=== PATIENT | female | born 1995 | race African-American/Black ===

== ENCOUNTER 2017-11-18 15:48 | Emergency (ER) | payer OTHER ==
[2017-11-18 15:58] VITALS: BP 97/50; PULSE 80; TEMP 98; BMI 39.4
--- NOTE | 2017-11-18 16:59 | PDOC ---
History of Present Illness - General Chief Complaint: Pain Stated Complaint: ABD PAIN Time Seen by Provider: 11/18/17 16:15 History Source: Patient - History of Present Illness Initial Comments: 22 y/o F w/PMH of tourettes, bipolar d/o, PCOS, IBS presents to the ER for nausea, vomiting, and BRBPR. She has had this nausea and vomiting for 1-2months and was seen at [facility] and here for it. CT was done at [facility] which was negative approximately 1 month ago. She states she is unable to hold down any food and throws up any liquid or solids right after eating. She says that the difficulty in keeping both solids and liquids started at the same time and there was no transition from solids to liquids. THe food she feels gets down to her lower esophagus before coming back up. She also states she has LLQ pain during this time period that is crampy, 7.5/10 in intensity, with no radiation, comes and goes randomly but is worse when she eats. She states she has 2-3 BMs per week during this time period and they have been large, and has had had bright red blood on it with a layer of blood on the toilet water. Last BM was 2 days ago and she has been passing gas since. She currently denies fevers, chills , CP, SOB, LE edema, dysuria. LMP was 5 days ago. Past History - Past Medical History Allergies/Adverse Reactions: Allergies Allergy/AdvReac Type Severity Reaction Status Date / Time acetaminophen [From Tylenol] Allergy Verified 11/18/17 15:58 ibuprofen [From Motrin] Allergy Verified 11/18/17 15:58 Home Medications: Ambulatory Orders Albuterol Sulfate Inhaler - [Ventolin HFA Inhaler -] 1 - 2 inh IH QID #1 inhaler 09/09/11 Benztropine Mesylate [Cogentin] 1 mg PO DAILY 09/09/11 Haloperidol [Haldol] 2 mg PO BID 09/09/11 OXcarbazepine [Trileptal] 600 mg PO HS 09/09/11 Oxcarbazepine [Trileptal] 300 mg PO AM 09/09/11 Ranitidine [Zantac] 150 mg PO BID 09/09/11 Asthma: Yes Cardiac Disorders: No COPD: No Diabetes: No HTN: No Hypercholesterolemia: No Psychiatric Problems: Yes (tourettes and bipolar) Seizures: No - Surgical History Abdominal Surgery: Yes (HERNIA REPAIR) - Immunization History Immunization Up to Date: Yes - Suicide/Smoking/Psychosocial Hx Smoking Status: No Smoking History: Never smoked Have you smoked in the past 12 months: No Number of Cigarettes Smoked Daily: 0 Information on smoking cessation initiated: No Hx Alcohol Use: No Drug/Substance Use Hx: No Substance Use Type: None Review of Systems - Review of Systems Able to Perform ROS?: Yes Constitutional: Yes: Fever (1 fever episode a few days ago), Other (weight gain) . No: Chills Respiratory: No: Cough, Shortness of Breath Cardiac (ROS): Yes: Chest Pain (last night, no longer has chest pain). No: Edema ABD/GI: Yes: Symptoms Reported (abd pain in lower quadrants, changes b/w diarrhea and constipation, BRBPR) : No: Burning, Dysuria Neurological: Yes: Dizziness. No: Headache *Physical Exam - Vital Signs Last Vital Signs Temp Pulse Resp BP Pulse Ox 98.0 F 80 18 97/50 L 100 11/18/17 15:55 11/18/17 15:55 11/18/17 15:55 11/18/17 15:55 11/18/17 15:55 - Physical Exam General Appearance: Yes: Nourished. No: Apparent Distress HEENT: positive: EOMI Neck: positive: Supple Respiratory/Chest: positive: Lungs Clear, Normal Breath Sounds Cardiovascular: positive: Regular Rhythm, Regular Rate, S1, S2 Gastrointestinal/Abdominal: positive: Tender, Soft, Increased Bowel Sounds Rectal Exam: positive: other (deferred) Extremity: negative: Pedal Edema Neurologic: positive: Fully Oriented, Alert, Normal Mood/Affect ED Treatment Course - LABORATORY CBC & Chemistry Diagram: 11/18/17 17:25 11/18/17 17:25 Medical Decision Making - Medical Decision Making Will keep NPO at this time. Check labs (CBCD, CMP, Lipase, TSH, UA). CT w/PO and IV contrast of abdomen pending Cr. NS @100 ml/hr 11/18/17 18:42 Labs wnl. UA negative. FOBT negative. Urine negative. Will order CT w/PO and IV contrast abdomen/pelvis. Case signed out to Dr. Lanza for further management. *DC/Admit/Observation/Transfer Diagnosis at time of Disposition: Abdominal pain - Referrals Referrals: Demetrice Montano MD [Primary Care Provider] - - Patient Instructions - Post Discharge Activity
--- NOTE | 2017-11-18 17:15 | PDOC ---
Attending Attestation - HPI HPI: 11/18/17 17:29 The patient is a 22 year old female, with a significant past medical history of PCOS, IBS, Tourettes, Bipolar, ADHD, Anxiety, and Chronic Lower Back Pain, who presents to the emergency department with a month and half of, nausea, vomiting , abdominal pain (worse LLQ), and bloody stools. She notes inability to keep any PO intake down. The patient has been evaluated at 2 ERs including [facility] with a full workup including a abdominal CT without any pertinent findings. Allergies: Acetaminophen, ibuprofen Past surgical history: Umbilical Hernia Repair. Primary Care Physician: Dr. Montano <Natty Dutton - Last Filed: 11/18/17 17:29> - Resident Resident Name: Sincere Michel - ED Attending Attestation I have performed the following: I have examined & evaluated the patient, The case was reviewed & discussed with the resident, I agree w/resident's findings & plan, Exceptions are as noted - Physicial Exam PE: 11/18/17 19:10 Patient is awake and alert, well-appearing, in no distress Normocephalic and atraumatic PERRLA, EOMI, conjunctiva pink, there is no scleral icterus mmm CTA, Abdomen is soft, nondistended, minimal left lower quadrant tenderness to deep palpation is appreciated, there is no guarding or rebound, no hernias, no CVA tenderness bilaterally RRR - Medical Decision Making 11/18/17 19:11 22-year-old female with history of Tourette syndrome, bipolar disorder presents with recurrent abdominal pain for 1-2 months, with recurrent episodes of nausea , nonbloody, nonbilious vomiting as well as rectal bleeding (last occurring 2 days prior to arrival.). Differential diagnoses includes IBD versus colitis versus diverticulitis versus IBS. We'll obtain CBC/CMP/stool for guaiac and CT of abdomen and pelvis with by mouth and IV contrast. Will reassess. 11/18/17 20:58 Patient reassessed. Patient is resting comfortably and wishes to eat. Abdomen is soft and nontender; CT shows bilateral ovarian cysts, diverticulosis but no evidence of diverticulitis. Collapsed: Without evidence of surrounding inflammation. CBC/CMP within normal limit. Hematocrit is noted to be 40. Stool guaiac is negative. Will discharge with GI follow-up as scheduled. 11/18/17 21:21 Patient vomited shortly prior to discharge. We'll administer IM Reglan and Benadryl. Will reassess. <Tony Zarco - Last Filed: 11/18/17 21:22> Attestations - Attestations 11/18/17 17:30 Documentation prepared by Natty Dutton, acting as chief medical director for Tony Zarco MD. <Natty Dutton - Last Filed: 11/18/17 17:29>
[2017-11-18] MEDS ORDERED: SODIUM CHLORIDE 1,000 ML IV SCH (17:30)
[2017-11-18 18:03] LABS: BASO % 0.3 % (0-2.0); EOS % 2.4 % (0-4.5); HEMATOCRIT 40.7 % (32.4-45.2); HEMOGLOBIN 13.6 GM/dL (10.7-15.3); LYMPH % 33.2 % (8-40); MCH 30.5 pg (25.7-33.7); MCHC 33.3 g/dl (32.0-36.0); MEAN CELL VOLUME 91.4 fl (80-96); MEAN PLT VOLUME 8.6 fl (7.5-11.1); MONO % 7.8 % (3.8-10.2); NEUT % 56.3 % (42.8-82.8); PLATELET COUNT 298 K/MM3 (134-434); RBC 4.45 M/mm3 (3.60-5.2); RDW 13.3 % (11.6-15.6); WHITE BLOOD COUNT 8.6 K/mm3 (4.0-10.0)
[2017-11-18 18:08] LABS: HCG,QUALITATIVE URINE Negative; URINE APPEARANCE CLEAR; URINE BILIRUBIN NEGATIVE (<2.0 mg/dL); URINE COLOR STRAW; URINE GLUCOSE (UA) NEGATIVE (NEGATIVE); URINE KETONE NEGATIVE (NEGATIVE); URINE LEUK ESTERASE NEGATIVE (NEGATIVE); URINE NITRITE NEGATIVE (NEGATIVE); URINE PROTEIN NEGATIVE (NEGATIVE); URINE UROBILINOGEN NEGATIVE mg/dL (0.2-1.0)
[2017-11-18 18:38] LABS: ALBUMIN 3.8 g/dl (3.4-5.0); ALK PHOS 53 U/L (45-117); ANION GAP 6 MMOL/L (8-16); BILIRUBIN,TOTAL 0.6 mg/dL (0.2-1); BLOOD UREA NITROGEN 6 mg/dL (7-18); CALCIUM 9.3 mg/dL (8.5-10.1); CHLORIDE 106 mmol/L (98-107); CO2 27 mmol/L (21-32); CREATININE 0.8 mg/dL (0.55-1.3); GLUCOSE,RANDOM 88 mg/dL (74-106); LIPASE 108 U/L (73-393); SGOT/AST 15 U/L (15-37); SGPT/ALT 16 U/L (13-61); SODIUM 139 mmol/L (136-145); TOT PROT 7.5 g/dl (6.4-8.2)
--- NOTE | 2017-11-18 20:56 | PDOC ---
*Physical Exam - Vital Signs Last Vital Signs Temp Pulse Resp BP Pulse Ox 98.0 F 80 18 97/50 L 100 11/18/17 15:55 11/18/17 15:55 11/18/17 15:55 11/18/17 15:55 11/18/17 15:55 ED Treatment Course - LABORATORY CBC & Chemistry Diagram: 11/18/17 17:25 11/18/17 17:25 - ADDITIONAL ORDERS Additional order review: Laboratory Results 11/18/17 11/18/17 11/18/17 18:09 17:39 17:25 Sodium 139 Potassium 4.0 Chloride 106 Carbon Dioxide 27 Anion Gap 6 L BUN 6 L Creatinine 0.8 Creat Clearance w eGFR > 60 Random Glucose 88 Calcium 9.3 Total Bilirubin 0.6 AST 15 ALT 16 Alkaline Phosphatase 53 Total Protein 7.5 Albumin 3.8 Lipase 108 TSH 1.05 Urine Color Urine Appearance Urine pH Ur Specific [place] Urine Protein Urine Glucose (UA) Urine Ketones Urine Blood Urine Nitrite Urine Bilirubin Urine Urobilinogen Ur Leukocyte Esterase Urine HCG, Qual Stool Occult Blood Negative Blood Type A POSITIVE Antibody Screen Negative 11/18/17 17:25 Sodium Potassium Chloride Carbon Dioxide Anion Gap BUN Creatinine Creat Clearance w eGFR Random Glucose Calcium Total Bilirubin AST ALT Alkaline Phosphatase Total Protein Albumin Lipase TSH Urine Color Straw Urine Appearance Clear Urine pH 8.0 Ur Specific [place] 1.004 Urine Protein Negative Urine Glucose (UA) Negative Urine Ketones Negative Urine Blood Negative Urine Nitrite Negative Urine Bilirubin Negative Urine Urobilinogen Negative Ur Leukocyte Esterase Negative Urine HCG, Qual Negative Stool Occult Blood Blood Type Antibody Screen 11/18/17 17:25 RBC 4.45 MCV 91.4 MCHC 33.3 RDW 13.3 MPV 8.6 Neutrophils % 56.3 Lymphocytes % 33.2 Monocytes % 7.8 Eosinophils % 2.4 Basophils % 0.3 Medical Decision Making - Medical Decision Making Patient signed out with llq pain concerning for follicle vs. other intrabdominal pathology. CT corroborating follicles bilaterally. Patient refused PO contrast so there was inadequate distension of her colon. There was mention of possible colitis due to wall thickening in the non-distended colon, however, this does not correlate clinically as patient is well appearing, lacks diarrhea, negative fobt, and lack of extraordinary wbc. There were also diverticuli on her CT which may explain the intermittent bleeding that she notes at home. Patient tolerating PO. Will DC with GI follow up. 11/18/17 20:51 *DC/Admit/Observation/Transfer Diagnosis at time of Disposition: Abdominal pain Qualifiers: Abdominal location: left lower quadrant Qualified Code(s): R10.32 - Left lower quadrant pain Nausea & vomiting Qualifiers: Vomiting type: bilious vomiting Qualified Code(s): R11.14 - Bilious vomiting - Discharge Dispostion Disposition: HOME Condition at time of disposition: Improved Decision to Admit order: No - Prescriptions Prescriptions: Ondansetron [Zofran *Odt*] 8 mg SL BID PRN #30 od.tablet PRN Reason: Nausea And/Or Vomiting - Referrals Referrals: Demetrice Montano MD [Primary Care Provider] - - Patient Instructions Printed Discharge Instructions: DI for Abdominal Pain-Adult, Nausea and Vomiting-Adult Additional Instructions: Please take it easy with the food. Please stick to fluids and soft foods. Please try to use the Zofran 30 minutes to 1 hour before eating. Please follow up with your GI doctor at your appointment. Please return to the ED if you have worsening abdominal pain, worsening nausea/vomiting, or any other concerning symptoms. - Post Discharge Activity
[2017-11-18] MEDS ORDERED: METOCLOPRAMIDE HCL INJECTION 10 MG/2 ML VIAL IM ONE (21:18)
== END 2017-11-18 22:33 | disposition home or self-care (01) ==
LOC: JER 15:48
PROC: 3E0337Z Introduction of Electrolytic and Water Balance Substance into Peripheral Vein, Percutaneous Approach (ICD-10-PCS; principal; 2017-11-18)
DX: R10.9 Unspecified abdominal pain (principal)
CPT/HCPCS: 36415; 74177-TC; 80053; 81003; 82272; 83690; 84443; 84703; 85025; 86850; 86900; 86901; 87086; 96360; 99283-25; J7030

== ENCOUNTER 2018-01-26 19:28 | Emergency (ER) | payer OTHER ==
[2018-01-26 19:37] VITALS: TEMP 98.6; BMI 36.3
--- NOTE | 2018-01-26 20:18 | PDOC ---
History of Present Illness <Derrick Nunez - Last Filed: 01/27/18 00:18> - History of Present Illness Initial Comments: 01/26/18 20:17 22 yo F with h/o asthma, bipolar disorder, Tourettes, who p/w diffuse abdominal pain, vomiting, lightheadedness. Endorses 3 episodes of non bilious, non bloody emesis this evening, with subsequent lightheadedness. + 3 months of diffuse, sharp, spasmodic abdominal pain, with no identifiable triggers or alleviators. Reports weight loss 87 Ibs in 3 months. Also endorses 1 week of loose stools, with absent BPR. Patient does not fully recall events from this evening. Endorses episode of transient, sharp, retrosternal chest pain, olfactory sensation of "burnt feathers,"and then lightheadedness this evening. Pt. mother at bedside to assist in report. States that patient was vomiting, and walked into room where patient was layign up against the wall and tired appearing, tremulous. Patient denies LOC, head trauma. Patient reports 3 months of intermittent vomiting, worse with PO intake. H/o IBS. Seen by Dr. Tc Pratt today and scheduled for outpt. EGD. Prior CT AP 11/08 with thickening of ascending, mid, and transverse colon. Patient denies N/V, F/C, cough, wheezing, leg pain/swelling, SOB, urinary complaints, abdominal pain, diarrhea, constipation, lightheadedness, weakness, sensory changes. PMHx: as noted above. Denies h/o abdominal surgery. ROS: as noted SHx: recreational tobacco 1-2 cigarretes/weekly. Denies Etoh, IVDA Allergies: Ibuprofen,Tylenol <Panchito Flor - Last Filed: 01/27/18 00:32> - General Chief Complaint: Seizure Stated Complaint: SEIZURE Time Seen by Provider: 01/26/18 20:10 Past History <Derrick Nunez - Last Filed: 01/27/18 00:18> - Past Medical History Asthma: Yes Cardiac Disorders: No COPD: No Diabetes: No HTN: No Hypercholesterolemia: No Psychiatric Problems: Yes (tourettes and bipolar,ADHD) Seizures: No - Surgical History Abdominal Surgery: Yes (HERNIA REPAIR) - Immunization History Immunization Up to Date: Yes - Suicide/Smoking/Psychosocial Hx Smoking Status: No Smoking History: Never smoked Have you smoked in the past 12 months: No Number of Cigarettes Smoked Daily: 0 Hx Alcohol Use: No Drug/Substance Use Hx: No Substance Use Type: None <Shoaib Florson - Last Filed: 01/27/18 00:32> - Past Medical History Allergies/Adverse Reactions: Allergies Allergy/AdvReac Type Severity Reaction Status Date / Time acetaminophen [From Tylenol] Allergy Verified 11/18/17 15:58 ibuprofen [From Motrin] Allergy Verified 11/18/17 15:58 Home Medications: Ambulatory Orders Ranitidine [Zantac -] 150 mg PO DAILY PRN #14 tablet 01/26/18 Review of Systems - Review of Systems Comments:: 01/26/18 20:17 GENERAL/CONSTITUTIONAL: No fever or chills. No weakness. HEAD, EYES, EARS, NOSE AND THROAT: No change in vision. No ear pain or discharge. No sore throat. CARDIOVASCULAR:+chest pain. no shortness of breath RESPIRATORY: No cough, wheezing, or hemoptysis. GASTROINTESTINAL: + nausea, vomiting, diarrhea, abdominal pain. No constipation. GENITOURINARY: No dysuria, frequency, or change in urination. MUSCULOSKELETAL: No joint or muscle swelling or pain. No neck or back pain. SKIN: No rash NEUROLOGIC: + lightheadedness. No headache, vertigo, loss of consciousness, or change in strength/sensation. ENDOCRINE: No increased thirst. No abnormal weight change HEMATOLOGIC/LYMPHATIC: No anemia, easy bleeding, or history of blood clots. ALLERGIC/IMMUNOLOGIC: No hives or skin allergy. <Panchito Flor - Last Filed: 01/27/18 00:32> *Physical Exam - Vital Signs Last Vital Signs Temp Pulse Resp BP Pulse Ox 98.6 F 77 16 108/76 99 01/26/18 19:31 01/26/18 21:53 01/26/18 21:53 01/26/18 21:53 01/26/18 21:53 <Derrick Nunez - Last Filed: 01/27/18 00:18> - Vital Signs Last Vital Signs Temp Pulse Resp BP Pulse Ox 98.6 F 77 20 134/96 99 01/26/18 19:31 01/26/18 19:31 01/26/18 19:31 01/26/18 19:31 01/26/18 19:31 - Physical Exam Comments: 01/26/18 20:18 GENERAL: Awake, alert, and fully oriented, in no acute distress HEAD: No signs of trauma, normocephalic, atraumatic EYES: PERRLA, EOMI, sclera anicteric, conjunctiva clear ENT:Hearing grossly normal, nares patent, oropharynx clear without exudates. Moist mucosa NECK: Normal ROM, supple, no lymphadenopathy, JVD, or masses LUNGS: No distress, speaks full sentences, clear to auscultation bilaterally HEART: Regular rate and rhythm, normal S1 and S2, no murmurs, rubs or gallops, peripheral pulses normal and equal bilaterally. ABDOMEN: Diffuse abdominal ttp midabdominal > epigastria > RLQ. Soft, NDS, normoactive bowel sounds. No guarding, no rebound. No masses EXTREMITIES : Normal inspection, Normal range of motion, no edema. No clubbing or cyanosis. NEUROLOGICAL: Cranial nerves II through XII grossly intact. Normal speech, normal gait, no focal sensorimotor deficits. Normal KERWIN. Absent dysmetria on FTN , HTS. SKIN: Warm, Dry, normal turgor, no rashes or lesions noted <Panchito Flor - Last Filed: 01/27/18 00:32> Moderate Sedation - Procedure Monitoring Vital Signs: Procedure Monitoring Vital Signs Temperature 98.6 F 01/26/18 19:31 Pulse Rate 77 01/26/18 21:53 Respiratory Rate 16 01/26/18 21:53 Blood Pressure 108/76 01/26/18 21:53 O2 Sat by Pulse Oximetry (%) 99 01/26/18 21:53 <Derrick Nunez - Last Filed: 01/27/18 00:18> - Procedure Monitoring Vital Signs: Procedure Monitoring Vital Signs Temperature 98.6 F 01/26/18 19:31 Pulse Rate 77 01/26/18 19:31 Respiratory Rate 20 01/26/18 19:31 Blood Pressure 134/96 01/26/18 19:31 O2 Sat by Pulse Oximetry (%) 99 01/26/18 19:31 <Panchito Flor - Last Filed: 01/27/18 00:32> ED Treatment Course - LABORATORY CBC & Chemistry Diagram: 01/26/18 21:46 01/26/18 20:48 - ADDITIONAL ORDERS Additional order review: Laboratory Results 01/26/18 01/26/18 01/26/18 22:55 22:55 21:46 Sodium Potassium Chloride Carbon Dioxide Anion Gap BUN Creatinine Creat Clearance w eGFR Random Glucose Calcium Total Bilirubin AST ALT Alkaline Phosphatase Creatine Kinase 149 Troponin I < 0.02 Total Protein Albumin Lipase Urine Color Ltyellow Urine Appearance Clear Urine pH 7.0 Ur Specific [place] 1.016 Urine Protein Negative Urine Glucose (UA) Negative Urine Ketones Negative Urine Blood 1+ H Urine Nitrite Negative Urine Bilirubin Negative Urine Urobilinogen Negative Ur Leukocyte Esterase Negative Urine WBC (Auto) <1 Urine RBC (Auto) 1 Ur Epithelial Cells Rare Urine Mucus Few Urine HCG, Qual Negative 01/26/18 01/26/18 21:46 20:48 Sodium 142 Potassium 4.1 Chloride 108 H Carbon Dioxide 25 Anion Gap 9 BUN 9 Creatinine 0.7 Creat Clearance w eGFR > 60 Random Glucose 81 Calcium 8.6 Total Bilirubin 0.2 AST 12 L ALT 16 Alkaline Phosphatase 53 Creatine Kinase Troponin I Total Protein 6.7 Albumin 3.5 Lipase Cancelled 150 Urine Color Urine Appearance Urine pH Ur Specific [place] Urine Protein Urine Glucose (UA) Urine Ketones Urine Blood Urine Nitrite Urine Bilirubin Urine Urobilinogen Ur Leukocyte Esterase Urine WBC (Auto) Urine RBC (Auto) Ur Epithelial Cells Urine Mucus Urine HCG, Qual 01/26/18 21:46 RBC 4.12 MCV 90.2 MCHC 34.6 RDW 13.4 MPV 8.7 Neutrophils % 55.0 Lymphocytes % 34.2 Monocytes % 8.1 Eosinophils % 2.5 Basophils % 0.2 - Medications Given in the ED: ED Medications Discontinued Medications Generic Name Dose Route Start Last Admin Trade Name Arnaudq PRN Reason Stop Dose Admin Al Hydroxide/Mg Hydroxide 30 ml 01/26/18 20:48 01/26/18 21:13 Mylanta Oral Suspension - PO 01/26/18 20:49 30 ml ONCE ONE Administration Famotidine/Sodium Chloride 20 mg in 50 mls @ 100 mls/hr 01/26/18 20:48 21:13 Pepcid 20 Mg Premixed Ivpb - IVPB 01/26/18 21:17 100 mls/hr ONCE ONE Administration Sodium Chloride 1,000 mls @ 1,000 mls/hr 01/26/18 20:48 01/26/18 21:13 Normal Saline - IV 01/26/18 21:47 1,000 mls/hr ASDIR STA Administration Ondansetron HCl 4 mg 01/26/18 20:48 01/26/18 21:14 Zofran Injection IVPB 01/26/18 20:49 4 mg ONCE ONE Administration Sucralfate 1 gm 01/26/18 20:48 01/26/18 21:12 Carafate - PO 01/26/18 20:49 1 gm ONCE ONE Administration <Derrick Nunez - Last Filed: 01/27/18 00:18> - LABORATORY CBC & Chemistry Diagram: 01/26/18 21:46 01/26/18 20:48 <Panchito Flor - Last Filed: 01/27/18 00:32> Medical Decision Making - Medical Decision Making 01/26/18 21:02 22 yo F with h/o asthma, bipolar disorder, Tourettes, who p/w diffuse abdominal pain, vomiting, lightheadedness. VSS, AF, A&Ox3.Diffuse abdominal ttp midabdominal > epigastria > RLQ ttp. Will consider esophagitis, gastritis, gastroenteritis, pancreatitis, biliary dz. colitis, nephrolithiasis, cystitis. Low suspicion AAA, Ao dissection, pyelonephritis. Possible siezure. Will evaluate for electrolyte abnml, metabolic and toxic derangements, acid base disturbances. Ed Course: CBC,CMP, LIPASE, UA, HCG, CARDIAC [place]. EKG FAMOTIDINE, ZOFRAN, NS, CARAFATE, MALOOX 01/26/18 21:18 EKG: NSR with absent SAURABH, STD. Nml axis and intervals. 01/26/18 22:39 CBC,CMP: Unremarkable Trop: Neg UA: Neg 01/27/18 00:14 Patient with absent convulsions in ED. Stable for d/c with return precautions. Advised to f/u with neurology. <Panchito Flor - Last Filed: 01/27/18 00:32> *DC/Admit/Observation/Transfer <Derrick Nunez - Last Filed: 01/27/18 00:18> - Discharge Dispostion Decision to Admit order: No - Attestations Physician Attestion: 01/26/18 20:18 I attest to the information provided in this note. <Panchito Flor - Last Filed: 01/27/18 00:32> Diagnosis at time of Disposition: Abdominal pain Qualifiers: Abdominal location: generalized Qualified Code(s): R10.84 - Generalized abdominal pain - Discharge Dispostion Condition at time of disposition: Stable - Prescriptions Prescriptions: Ranitidine [Zantac -] 150 mg PO DAILY PRN #14 tablet PRN Reason: Pain - Referrals Referrals: [facility] [place] [facility] [place] [Provider Group] - Patient Instructions Printed Discharge Instructions: DI for Abdominal Pain-Adult Additional Instructions: Please return to the emergency department with any new or worsening symptoms or concerns. Please follow up with your primary care physician within 72 hours. Please follow up with Gastroenterology within one week. Take Ranitidine as needed for pain.
[2018-01-26] MEDS ORDERED: SODIUM CHLORIDE 1,000 ML IV STA (20:48)
[2018-01-26] MEDS ORDERED: FAMOTIDINE 20 MG/50 ML IVPB 20 MG/50 ML MG IVPB ONE ×2 (20:48→20:55)
[2018-01-26] MEDS ORDERED: MAG HYDROX/AL HYDROX/SIMETH 30 ML UNIT-DOSE CUP PO ONE (20:48)
[2018-01-26] MEDS ORDERED: SUCRALFATE 1 GM TABLET (FP) PO ONE (20:48)
[2018-01-26] MEDS ORDERED: ONDANSETRON 4 MG/2 ML VIAL IVPB ONE (20:48)
[2018-01-26] MEDS ORDERED: SUCRALFATE 1 GM TABLET (FP) ONE (20:54)
[2018-01-26] MEDS ORDERED: ONDANSETRON 4 MG/2 ML VIAL ONE (20:55)
[2018-01-26] MEDS ORDERED: MAG HYDROX/AL HYDROX/SIMETH 30 ML UNIT-DOSE CUP ONE (20:56)
[2018-01-26 21:55] LABS: BASO % 0.2 % (0-2.0); EOS % 2.5 % (0-4.5); HEMATOCRIT 37.2 % (32.4-45.2); HEMOGLOBIN 12.8 GM/dL (10.7-15.3); LYMPH % 34.2 % (8-40); MCH 31.2 pg (25.7-33.7); MCHC 34.6 g/dl (32.0-36.0); MEAN CELL VOLUME 90.2 fl (80-96); MEAN PLT VOLUME 8.7 fl (7.5-11.1); MONO % 8.1 % (3.8-10.2); PLATELET COUNT 281 K/MM3 (134-434); RBC 4.12 M/mm3 (3.60-5.2); RDW 13.4 % (11.6-15.6)
[2018-01-26 22:22] LABS: ALBUMIN 3.5 g/dl (3.4-5.0); ALK PHOS 53 U/L (45-117); ANION GAP 9 MMOL/L (8-16); BILIRUBIN,TOTAL 0.2 mg/dL (0.2-1); BLOOD UREA NITROGEN 9 mg/dL (7-18); CALCIUM 8.6 mg/dL (8.5-10.1); CHLORIDE 108 mmol/L (98-107); CO2 25 mmol/L (21-32); CREATININE 0.7 mg/dL (0.55-1.3); GLUCOSE,RANDOM 81 mg/dL (74-106); POTASSIUM 4.1 mmol/L (3.5-5.1); SGOT/AST 12 U/L (15-37); SGPT/ALT 16 U/L (13-61); SODIUM 142 mmol/L (136-145); TOT PROT 6.7 g/dl (6.4-8.2)
--- NOTE | 2018-01-26 22:35 | PDOC ---
Attending Attestation - Resident Resident Name: Panchito Flor - ED Attending Attestation I have performed the following: I have examined & evaluated the patient, The case was reviewed & discussed with the resident, I agree w/resident's findings & plan - HPI HPI: 01/26/18 22:29 22-year-old female with history of bipolar disorder, Tourette's syndrome, seizure disorder, chronic GI issues with possible IBS, off all medications since July after moving out of her retirement presents now with vomiting and possible seizure this evening. Patient appears to have had seizure with aura while standing in the kitchen, describes her typical olfactory aura and then was found by her family member on the floor, minimally responsive for about 3-4 minutes and then slowly began to return to baseline. No head injury, positive vomiting, no other complaints. No preceding infectious complaints, patient's GI complaints have been slightly improving over the last few days and she was seen by Dr. Pratt yesterday with plans to perform endoscopy/colonoscopy as outpatient. No fevers or chills, no cardiopulmonary complaints, has no neurological complaints at this time. Patient's last seizure was about 10 years ago, reports she was evaluated by neurology back then and decision was made to not start antiepileptics. - Physicial Exam PE: 01/26/18 22:32 Vital signs are normal Patient is well-appearing, conversant, in no acute distress, smiling and cooperative, intermittent verbal tic. head atraumatioc Heart is regular without ectopy or murmur, lungs are clear Abdomen benign Neurologically nonfocal and intact No SI/HI/AH/VH - Medical Decision Making 01/26/18 22:36 22-year-old female with history of bipolar, Tourette's, and seizures off medications for 6 months with presentation now this seems most consistent with seizure episode with aura, rule out infectious versus metabolic etiology. Neurologically intact without evidence of SIRS or sepsis, well-appearing now. Check labs, urinalysis, EKG No indication for emergent imaging given history of seizures and no evidence of head injury IV fluids, GI cocktail Reassess, above is within normal limits we'll give medicine clinic referral and neurology referral Heart Score/ECG Review #1 ECG reviewed & interpreted by me at: 20:21 General ECG Interpretation: Sinus Rhythm, Normal Rate (66), Normal Intervals ( qtc 417), No acute ischemic changes
[2018-01-26 23:16] LABS: URINE APPEARANCE CLEAR; URINE BILIRUBIN NEGATIVE (<2.0 mg/dL); URINE COLOR LTYELLOW; URINE GLUCOSE (UA) NEGATIVE (NEGATIVE); URINE KETONE NEGATIVE (NEGATIVE); URINE LEUK ESTERASE NEGATIVE (NEGATIVE); URINE NITRITE NEGATIVE (NEGATIVE); URINE PROTEIN NEGATIVE (NEGATIVE); URINE UROBILINOGEN NEGATIVE mg/dL (0.2-1.0)
[2018-01-26 23:17] LABS: EPI CELLS RARE /HPF (FEW); URINE MUCUS FEW
[2018-01-26 23:22] LABS: LIPASE 150 U/L (73-393)
[2018-01-27 00:45] VITALS: BP 112/67; PULSE 80
--- NOTE | 2018-01-27 11:44 | EKG ---
Test Reason : Blood Pressure : / mmHG Vent. Rate : 066 BPM Atrial Rate : 066 BPM P-R Int : 158 ms QRS Dur : 086 ms QT Int : 398 ms P-R-T Axes : 037 021 009 degrees QTc Int : 417 ms NORMAL SINUS RHYTHM NONSPECIFIC T WAVE ABNORMALITY ABNORMAL ECG WHEN COMPARED WITH ECG OF 29-OCT-2017 09:35, NO SIGNIFICANT CHANGE WAS FOUND Confirmed by KINGS LOWE MD ([id number]) on 01/27/2018 11:43:41 AM Referred By: Confirmed By:KINGS LOWE MD
== END 2018-01-27 03:12 | disposition home or self-care (01) ==
LOC: JER 19:28
PROC: 3E033GC Introduction of Other Therapeutic Substance into Peripheral Vein, Percutaneous Approach (ICD-10-PCS; principal; 2018-01-26)
PROC: 3E033GC Introduction of Other Therapeutic Substance into Peripheral Vein, Percutaneous Approach (ICD-10-PCS; 2018-01-26)
DX: R10.84 Generalized abdominal pain (principal); F31.9 Bipolar disorder, unspecified; F90.9 Attention-deficit hyperactivity disorder, unspecified type; J45.909 Unspecified asthma, uncomplicated; F95.2 Tourette's disorder
CPT/HCPCS: 36415; 80053; 81003; 81015; 82550; 83690; 84484; 84703; 85025; 93005; 93010; 99282-25; J7030

== ENCOUNTER 2018-04-05 20:47 | Emergency (ER) | payer OTHER ==
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
[2018-04-05 21:05] VITALS: BP 112/65; PULSE 83; TEMP 98.5; BMI 28.3
--- NOTE | 2018-04-05 21:41 | PDOC ---
History of Present Illness - General Chief Complaint: Pain Stated Complaint: CHEST PAIN Time Seen by Provider: 04/05/18 20:55 History Source: Patient - History of Present Illness Initial Comments: 04/05/18 21:42 23 year old female with history of bipolar disorder, tourettes, bipolar, anxiety c/o chest discomfort after several arguments with girl friend, patient reports unprotected sex with a friend unsure if she is . LMP: 02/21/18. denies urinary symptoms, dizziness, vaginal discharge., Past History - Past Medical History Allergies/Adverse Reactions: Allergies Allergy/AdvReac Type Severity Reaction Status Date / Time acetaminophen [From Tylenol] Allergy Verified 04/05/18 20:59 ibuprofen [From Motrin] Allergy Verified 04/05/18 20:59 Home Medications: Ambulatory Orders Ranitidine [Zantac -] 150 mg PO DAILY PRN #14 tablet 01/26/18 Asthma: Yes Cardiac Disorders: No COPD: No Diabetes: No HTN: No Hypercholesterolemia: No Psychiatric Problems: Yes (tourettes and bipolar,ADHD) Seizures: No - Surgical History Abdominal Surgery: Yes (Umbilical hernia repair) - Immunization History Immunization Up to Date: Yes - Suicide/Smoking/Psychosocial Hx Smoking Status: No Smoking History: Never smoked Have you smoked in the past 12 months: No Number of Cigarettes Smoked Daily: 0 Information on smoking cessation initiated: No Hx Alcohol Use: No Drug/Substance Use Hx: No Substance Use Type: None Review of Systems - Review of Systems Able to Perform ROS?: Yes Is the patient limited Bermudian proficient: No Constitutional: No: Symptoms Reported, See HPI, Chills, Diaphoresis, Fever, Loss of Appetite, Malaise, Night Sweats, Weakness, Weight Stable, Unintentional Wgt. Loss, Unexplained wgt Loss, Other HEENTM: No: Symptoms Reported, See HPI, Eye Pain, Blurred Vision, Tearing, Recent change in vision, Double Vision, Cataracts, Ear Pain, Ocular Prothesis, Ear Discharge, Nose Pain, Nose Congestion, Tinnitus, Nose Bleeding, Hearing Loss , Throat Pain, Throat Swelling, Mouth Pain, Dental Problems, Difficulty Swallowing, Mouth Swelling, Other Respiratory: No: Symptoms reported, See HPI, Cough, Orthopnea, Shortness of Breath, SOB with Exertion, SOB at Rest, Stridor, Wheezing, Productive cough, Hemoptysis, Other Cardiac (ROS): Yes: Chest Pain. No: Symptoms Reported, See HPI, Edema, Irregular Heart Rate, Lightheadedness, Palpitations, Syncope, Chest Tightness, Other : No: Symptoms Reported, See HPI, Burning, Dysuria, Discharge, Frequency, Flank Pain, Hematuria, Incontinence, Pain, Urgency, Testicular Mass, Testicular Swelling, Lesions, Testicular Pain, Other *Physical Exam - Vital Signs Last Vital Signs Temp Pulse Resp BP Pulse Ox 98.5 F 83 18 112/65 99 04/05/18 21:00 04/05/18 21:00 04/05/18 21:00 04/05/18 21:00 04/05/18 21:00 - Physical Exam General Appearance: Yes: Appropriately Dressed Respiratory/Chest: positive: Lungs Clear Cardiovascular: positive: Regular Rhythm, Regular Rate Gastrointestinal/Abdominal: positive: Normal Bowel Sounds, Soft. negative: Tender Musculoskeletal: positive: Normal Inspection Extremity: positive: Normal Capillary Refill, Normal Inspection, Normal Range of Motion Integumentary: positive: Normal Color, Dry, Warm Neurologic: positive: microsoft windows engineer II-XII NML intact, Fully Oriented, Alert, Normal Mood/ Affect Moderate Sedation - Procedure Monitoring Vital Signs: Procedure Monitoring Vital Signs Temperature 98.5 F 04/05/18 21:00 Pulse Rate 83 04/05/18 21:00 Respiratory Rate 18 04/05/18 21:00 Blood Pressure 112/65 04/05/18 21:00 O2 Sat by Pulse Oximetry (%) 99 04/05/18 21:00 Heart Score/ECG Review - ECG Intrepretation Rhythm: Regular Rhythm Comment:: 04/05/18 23:03 NSR: 73 bpm *DC/Admit/Observation/Transfer Diagnosis at time of Disposition: Anxiety attack, Concern about unplanned without diagnosis - Discharge Dispostion Disposition: HOME - Referrals Referrals: Zak Montalvo MD [Primary Care Provider] - Marybeth Grossman MD [Staff Physician] - - Patient Instructions Printed Discharge Instructions: DI for Anxiety -- Adult Additional Instructions: please follow up with your doctor Additional Instructions: * Please call your personal physician to report your Emergency Department visit and to report your progress, if any. * If there is no improvement in symptoms in 2 days call your physician. * Return to the Emergency Department for any worsening symptoms. - Post Discharge Activity
[2018-04-05 22:17] LABS: URINE APPEARANCE CLEAR; URINE BILIRUBIN NEGATIVE (<2.0 mg/dL); URINE COLOR STRAW; URINE GLUCOSE (UA) NEGATIVE (NEGATIVE); URINE KETONE NEGATIVE (NEGATIVE); URINE LEUK ESTERASE NEGATIVE (NEGATIVE); URINE NITRITE NEGATIVE (NEGATIVE); URINE PROTEIN NEGATIVE (NEGATIVE); URINE UROBILINOGEN NEGATIVE mg/dL (0.2-1.0)
--- NOTE | 2018-04-06 15:40 | EKG ---
Test Reason : Blood Pressure : / mmHG Vent. Rate : 073 BPM Atrial Rate : 073 BPM P-R Int : 154 ms QRS Dur : 086 ms QT Int : 374 ms P-R-T Axes : 047 039 023 degrees QTc Int : 412 ms NORMAL SINUS RHYTHM NORMAL ECG WHEN COMPARED WITH ECG OF 26-JAN-2018 20:21, NO SIGNIFICANT CHANGE WAS FOUND Confirmed by LEONID HASSAN MD ([id number]) on 04/06/2018 3:40:40 PM Referred By: Confirmed By:LEONID HASSAN MD
== END 2018-04-05 23:15 | disposition home or self-care (01) ==
LOC: JER 20:47
DX: F41.0 Panic disorder [episodic paroxysmal anxiety] (principal); Z32.02 Encounter for pregnancy test, result negative; Z86.59 Personal history of other mental and behavioral disorders; F95.2 Tourette's disorder
CPT/HCPCS: 81003; 84703; 93005; 93010; 99281-25

== ENCOUNTER 2018-07-29 12:04 | Emergency (ER) | payer OTHER | END 2018-07-29 12:49 | disposition home or self-care (01) | LOC: JERFT 12:04 ==

== ENCOUNTER 2019-02-18 01:15 | Emergency (ER) | payer OTHER ==
--- NOTE | 2019-02-18 01:37 | PDOC ---
History of Present Illness - General Stated Complaint: POSSIBLE SEIZURE Time Seen by Provider: 02/18/19 01:37 - History of Present Illness Initial Comments: 02/18/19 01:37 24-year-old female with history of bipolar disorder, Tourette's syndrome, seizure disorder, chronic GI issues with possible IBS who presents with a headache that has been ongoing for 1.5 months and with feelign as if she might have a seizure. on depakote, occipital headache for 1.5months previously managed with tylenol and execedrin but ran out of home meds had worsening headache today at 12am with dizziness, thought she might be having a seizure compliant with all meds Past History - Past Medical History Allergies/Adverse Reactions: Allergies Allergy/AdvReac Type Severity Reaction Status Date / Time acetaminophen [From Tylenol] Allergy Verified 07/29/18 12:21 ibuprofen [From Motrin] Allergy Verified 07/29/18 12:21 Home Medications: Ambulatory Orders Divalproex *ER* [Depakote *ER* -] 500 mg PO DAILY 07/29/18 Haloperidol [Haldol -] 5 mg PO BID 07/29/18 Acetaminophen [Tylenol] 325 mg PO DAILY #10 capsule 02/18/19 Diphenhydramine HCl [Benadryl -] 25 mg PO ONCE 3 Days #1 capsule 02/18/19 Asthma: Yes Cardiac Disorders: No COPD: No Diabetes: No HTN: No Hypercholesterolemia: No Psychiatric Problems: Yes (tourettes and bipolar,ADHD) Seizures: No - Surgical History Abdominal Surgery: Yes (HERNIA REPAIR) - Immunization History Immunization Up to Date: Yes - Psycho Social/Smoking Cessation Hx Smoking Status: No Smoking History: Unknown if ever smoked Have you smoked in the past 12 months: Yes Number of Cigarettes Smoked Daily: 0 Hx Alcohol Use: Yes Drug/Substance Use Hx: Yes Substance Use Type: None ED Treatment Course - LABORATORY CBC & Chemistry Diagram: 02/18/19 03:16 02/18/19 03:16 Discharge - Discharge Information Problems reviewed: Yes Clinical Impression/Diagnosis: Headache Condition: Stable Disposition: HOME - Admission No - Additional Discharge Information Prescriptions: Acetaminophen [Tylenol] 325 mg PO DAILY #10 capsule Diphenhydramine HCl [Benadryl -] 25 mg PO ONCE 3 Days #1 capsule - Follow up/Referral Referrals: Shraddha Real MD [Primary Care Provider] - - Patient Discharge Instructions Patient Printed Discharge Instructions: DI for Seizure Disorder -- Adult, DI for Headache Additional Instructions: You were seen in the ED for complaints of headache In the ED you were evaluated with labwork Your results showed a low depakote level and you were given an additional dose here. Otherwise your labs were unremarkable and you showed symptom improvement There does not appear to be an acute need for immediate hospitalization. You are advised to follow up with your Primary Care Physician and your Psychiatrist within 1 week. Return to the ED immediately if you experience worsening headache, dizziness, fever, shortness of breath or any other concerning symptoms. - Post Discharge Activity
--- NOTE | 2019-02-18 01:43 | PDOC ---
Attending Attestation - Resident Resident Name: Monica Heart - ED Attending Attestation I have performed the following: I have examined & evaluated the patient, The case was reviewed & discussed with the resident, I agree w/resident's findings & plan - HPI HPI: 02/18/19 04:30 Pt thinks that she felt like she may have a seizure because she experienced dizziness with her usual BHAT. Pt has no other complaints She is A+Ox3 and she is rating and drinking and refusing IV Pt just wants to check her depakote level. - Physicial Exam PE: 02/18/19 04:32 Normal exam. A+Ox3 and no distress CN 2-12 intact Neuro no gross focal deficits. She has no fever No rahses Abd soft NT ND HEENT normal No pitting edema - Medical Decision Making 02/18/19 04:34 Pt has normal labs; depakote is low at 39; therapeutic range is 50-100; pt will be given an extrea dose of depakote ER 500mg and she will be discharged home. She is feeling better and she will go home with medicaid cab.
[2019-02-18 01:51] VITALS: BP 101/55; PULSE 80; TEMP 98.4; BMI 43.2
[2019-02-18] MEDS ORDERED: METOCLOPRAMIDE HCL INJECTION 10 MG/2 ML VIAL IVPUSH ONE (02:30)
[2019-02-18] MEDS ORDERED: ACETAMINOPHEN 1000 MG/100 ML VIAL (NON FORMULARY) IVPB ONE (02:30)
[2019-02-18] MEDS ORDERED: SODIUM CHLORIDE 1,000 ML IV SCH (02:45)
[2019-02-18] MEDS ORDERED: diphenhydrAMINE HCL 25 MG CAPSULE (FP) PO ONE ×2 (03:19→04:44)
[2019-02-18] MEDS ORDERED: METOCLOPRAMIDE HCL 10 MG TABLET (FP) PO ONE (03:19)
[2019-02-18] MEDS ORDERED: ACETAMINOPHEN 325 MG TABLET (FP) PO ONE (03:19)
[2019-02-18 03:42] LABS: BASO % 0.3 % (0-2.0); EOS % 2.1 % (0-4.5); HEMATOCRIT 41.2 % (32.4-45.2); HEMOGLOBIN 13.8 GM/dL (10.7-15.3); LYMPH % 21.7 % (8-40); MCH 30.8 pg (25.7-33.7); MCHC 33.6 g/dl (32.0-36.0); MEAN CELL VOLUME 91.9 fl (80-96); MEAN PLT VOLUME 8.3 fl (7.5-11.1); MONO % 7.8 % (3.8-10.2); NEUT % 68.1 % (42.8-82.8); PLATELET COUNT 301 K/MM3 (134-434); RBC 4.49 M/mm3 (3.60-5.2); RDW 13.1 % (11.6-15.6); WHITE BLOOD COUNT 10.9 K/mm3 (4.0-10.0)
[2019-02-18 04:09] LABS: ALBUMIN 3.6 g/dl (3.4-5.0); ALK PHOS 54 U/L (45-117); ANION GAP 6 MMOL/L (8-16); BILIRUBIN,TOTAL 0.2 mg/dL (0.2-1); BLOOD UREA NITROGEN 11.9 mg/dL (7-18); CALCIUM 9.2 mg/dL (8.5-10.1); CHLORIDE 106 mmol/L (98-107); CO2 28 mmol/L (21-32); CREATININE 0.8 mg/dL (0.55-1.3); GLUCOSE,RANDOM 94 mg/dL (74-106); POTASSIUM 4.1 mmol/L (3.5-5.1); SGOT/AST 12 U/L (15-37); SGPT/ALT 21 U/L (13-61); SODIUM 139 mmol/L (136-145); TOT PROT 7.2 g/dl (6.4-8.2)
[2019-02-18 04:26] LABS: EPI CELLS 2.4 /HPF (0-5/HPF); HYALINE CASTS 5 /lpf (0-8); PH,URINE 5.5 (5.0-8.0); URINE APPEARANCE CLEAR; URINE BACTERIA 45.1 /hpf (NEGATIVE); URINE BILIRUBIN NEGATIVE (NEGATIVE); URINE COLOR YELLOW; URINE GLUCOSE (UA) NEGATIVE (NEGATIVE); URINE KETONE TRACE (NEGATIVE); URINE LEUK ESTERASE NEGATIVE (NEGATIVE); URINE NITRITE NEGATIVE (NEGATIVE); URINE PROTEIN NEGATIVE (NEGATIVE); URINE RBC 3 /hpf (0-4); URINE WBC 1 /hpf (0-5)
[2019-02-18] MEDS ORDERED: DIVALPROEX NA *ER* EXTEND REL 500 MG TABLET.SA (FP) PO ONE (04:28)
== END 2019-02-18 05:34 | disposition home or self-care (01) ==
LOC: JER 01:15
DX: R51 Headache (principal); G40.909 Epilepsy, unspecified, not intractable, without status epilepticus; F95.2 Tourette's disorder; F31.9 Bipolar disorder, unspecified; F90.9 Attention-deficit hyperactivity disorder, unspecified type; Z87.09 Personal history of other diseases of the respiratory system; Z87.19 Personal history of other diseases of the digestive system; Z88.6 Allergy status to analgesic agent
CPT/HCPCS: 36415; 80053; 80164; 81003; 84702; 85025; 87086; 99282-25

== ENCOUNTER 2019-11-03 | Emergency (ER) | payer OTHER ==
[2019-11-03 00:19] VITALS: BP 110/62; PULSE 94; TEMP 98.4; BMI 33.3
[2019-11-03 02:15] LABS: HCG,QUALITATIVE URINE Negative
--- NOTE | 2019-11-03 02:24 | PDOC ---
History of Present Illness - General Chief Complaint: Lightheaded Stated Complaint: DIZZINESS Time Seen by Provider: 11/03/19 01:21 - History of Present Illness Initial Comments: HPI 24 yo F with PMH of bipolar disorder, Tourette's syndrome, seizures, chronic GI uses (possible IBS) presenting with worsening of her vertigo symptoms over this past month. Pt reports that she was diagnosed with vertigo 1 year ago by her PCP Dr. Shraddha Real; reports not being prescribed any medications at this time. When she experiences her vertigo symptoms she feels like the room is spinning and feels un-balanced" while walking; sometimes with nausea and vomiting with episodes. When she was first diagnosed the episodes would occur every few weeks; now they occur every few days. Over the last month she reports an associated high pitch ringing sound in her L ear that occurs intermittently and possible bilateral nonspecific loss of hearing (reports that she can't hear as well as she used to, but the change is not drastic). Pt reports that the episodes can occur with sudden movements but sometimes also when at rest without any preceding activity. Pt denies recent illness, sick contacts, travel history, recent ear infection, cough, congestion, rhinorrhea, ear pain, nausea, vomiting, fevers, chills, diarrhea, constipation, changes in strength/sensation, loss of consciousness, falls, chest pain, abdominal pain, or SOB. PMHX: as in HPI PSHX: see below Meds: Home Medications Medication Instructions Recorded Divalproex *ER* [Depakote *ER* -] 500 mg PO DAILY 07/29/18 Haloperidol [Haldol -] 5 mg PO BID 07/29/18 Acetaminophen [Tylenol] 325 mg PO DAILY #10 capsule 02/18/19 Diphenhydramine HCl [Benadryl -] 25 mg PO ONCE 3 Days #1 capsule 02/18/19 Meclizine HCl 25 mg PO DAILY PRN 14 Days #14 11/03/19 tablet Allergies: as per chart Tob: smokes multiple packs of cigarettes per day now; this is a change from just a few cigarettes/day over the past year; has interest in quitting Etoh: denies Rec drugs: denies PCP: Dr. Shraddha Real ROS GENERAL/CONSTITUTIONAL: No fever or chills. No weakness. HEAD, EYES, EARS, NOSE AND THROAT: No change in vision. No ear pain or discharge. No sore throat. CARDIOVASCULAR: No chest pain or shortness of breath RESPIRATORY: No cough, wheezing, or hemoptysis. GASTROINTESTINAL: No nausea, vomiting, diarrhea or constipation. GENITOURINARY: No dysuria, frequency, or change in urination. MUSCULOSKELETAL: No joint or muscle swelling or pain. No neck or back pain. SKIN: No rash NEUROLOGIC: No headache, loss of consciousness, or change in strength/sensation. + vertigo, disequilibrium, tinnitus of L ear ENDOCRINE: No increased thirst. No abnormal weight change HEMATOLOGIC/LYMPHATIC: No anemia, easy bleeding, or history of blood clots. ALLERGIC/IMMUNOLOGIC: No hives or skin allergy. PE GENERAL: Awake, alert, and fully oriented, in no acute distress HEAD: No signs of trauma, normocephalic, atraumatic EYES: PERRLA, EOMI, sclera anicteric, conjunctiva clear ENT: Auricles normal inspection, hearing grossly normal (although patient reports distant sounds are harder to hear than before), nares patent, oropharynx clear without exudates. Moist mucosa. Ears with normal TM, large amount of cerumen in b/l ear canals. With possible positive Gauri-Hallpike test. NECK: Normal ROM, supple, no lymphadenopathy, JVD, or masses LUNGS: No distress, speaks full sentences, clear to auscultation bilaterally HEART: Regular rate and rhythm, normal S1 and S2, no murmurs, rubs or gallops, peripheral pulses normal and equal bilaterally. ABDOMEN: Soft, nontender, normoactive bowel sounds. No guarding, no rebound. No masses EXTREMITIES : Normal inspection, Normal range of motion, no edema. No clubbing or cyanosis. NEUROLOGICAL: Cranial nerves II through XII grossly intact. Normal speech, normal gait, no focal sensorimotor deficits SKIN: Warm, Dry, normal turgor, no rashes or lesions noted 11/03/19 04:39 Past History - Medical History Allergies/Adverse Reactions: Allergies Allergy/AdvReac Type Severity Reaction Status Date / Time acetaminophen [From Tylenol] Allergy Verified 11/03/19 00:16 ibuprofen [From Motrin] Allergy Verified 11/03/19 00:16 Home Medications: Ambulatory Orders Divalproex *ER* [Depakote *ER* -] 500 mg PO DAILY 07/29/18 Haloperidol [Haldol -] 5 mg PO BID 07/29/18 Acetaminophen [Tylenol] 325 mg PO DAILY #10 capsule 02/18/19 Diphenhydramine HCl [Benadryl -] 25 mg PO ONCE 3 Days #1 capsule 02/18/19 Meclizine HCl 25 mg PO DAILY PRN 14 Days #14 tablet 11/03/19 Asthma: Yes Cardiac Disorders: No COPD: No Diabetes: No HTN: No Hypercholesterolemia: No Psychiatric Problems: Yes (tourettes and bipolar,ADHD) Seizures: No - Surgical History Abdominal Surgery: Yes (HERNIA REPAIR) - Reproductive History Is Patient Now?: No - Immunization History Immunization Up to Date: Yes - Psycho-Social/Smoking History Smoking Status: No Smoking History: Never smoked Have you smoked in the past 12 months: No Number of Cigarettes Smoked Daily: 0 Information on smoking cessation initiated: No - Substance Abuse Hx (Audit-C & DAST Scrn) How often the patient has a drink containing alcohol: Never Score: In Men: 4 or > Positive; In Women: 3 or > Positive: 0 Screen Result (Pos requires Nsg. Audit-10AR): Negative In the last yr the pt used illegal drug/Rx for NonMed reason: No Score: Yes response is considered Positive: 0 Screen Result (Positive result requires Nsg. DAST-10): Negative *Physical Exam - Vital Signs Last Vital Signs Temp Pulse Resp BP Pulse Ox 98.4 F 94 H 20 110/62 99 11/03/19 00:16 11/03/19 00:16 11/03/19 00:16 11/03/19 00:16 11/03/19 00:16 ED Treatment Course - ADDITIONAL ORDERS Additional order review: Laboratory Results 11/03/19 01:25 Urine HCG, Qual Negative Medical Decision Making - Medical Decision Making MDM 24 yo F with PMH of bipolar disorder, Tourette's syndrome, seizures, chronic GI uses (possible IBS) presenting with worsening of her vertigo symptoms over this past month with associated tinnitus; sometimes associated with sudden movements and sometimes spontaneous. DDX including but not limited to: BPPV, Meniere's disease, labrynthitis, vestibular neuritis, otitis media/externa W/U: - no further workup needed TX: - Laci Maneuver done with good relief of symptoms Patient stable for discharge. Informed of all lab and imaging results. Given follow up instructions and strict return precautions. Patient expressed understanding and agree to plan Pt discharged with prescription for PO meclizine; encouraged to follow up with PCP. 11/03/19 04:58 Discharge - Discharge Information Problems reviewed: Yes Clinical Impression/Diagnosis: Vertigo Condition: Improved Disposition: HOME - Admission No - Additional Discharge Information Prescriptions: Meclizine HCl 25 mg PO DAILY PRN 14 Days #14 tablet PRN Reason: Vertigo - Follow up/Referral Referrals: Shraddha Real MD [Primary Care Provider] - - Patient Discharge Instructions Patient Printed Discharge Instructions: Benign Paroxysmal Positional Vertigo, DI for Meniere Disease Additional Instructions: You were seen in the ED for complaints of worsening vertigo symptoms with associated ear ringing and possible nonspecific hearing loss. In the ED you were evaluated with physical examination. Your evaluation for Benign Paroxysmal Positional Vertigo; suspicious for possible Meniere's Disease. There does not appear to be an acute need for immediate hospitalization. You are advised to follow up with your Primary Care Physician within 1 week. You were given a prescription for Meclizine as needed once a day when experiencing symptoms Return to the ED immediately if you experience: -Develop a fever -Have vision problems, hearing loss, or difficulty speaking -Feel weakness or numbness in your arm or leg -Fall or have difficulty walking -Get a new headache - Post Discharge Activity
--- NOTE | 2019-11-03 02:31 | PDOC ---
Documentation entered by Osiris Vincent SCRIBE, acting as scribe for Ashley Bell MD. Ashley Bell MD: This documentation has been prepared by the Carlton calvillo Xhesika, SCRIBE, under my direction and personally reviewed by me in its entirety. I confirm that the documentation accurately reflects all work, treatment, procedures, and medical decision making performed by me. Attending Attestation - Resident Resident Name: YoliRaphaelsuzanne - ED Attending Attestation I have performed the following: I have examined & evaluated the patient, The case was reviewed & discussed with the resident, I agree w/resident's findings & plan - HPI HPI: 11/03/19 01:37 The patient is a 24y/o female with history of bipolar disorder, Tourette's syndrome, seizure disorder (depakote), chronic GI issues with possible IBS who presents with lightheadedness. Allergies: Acetaminophen, ibuprofen - Physicial Exam PE: 11/03/19 01:39 GENERAL: Awake, alert, and fully oriented, in no acute distress HEAD: No signs of trauma EYES: PERRLA, EOMI, sclera anicteric, conjunctiva clear ENT: Auricles normal inspection, hearing grossly normal, nares patent, oropharynx clear without exudates. Moist mucosa NECK: Normal ROM, supple, no lymphadenopathy, JVD, or masses LUNGS: Breath sounds equal, clear to auscultation bilaterally. No wheezes, and no crackles HEART: Regular rate and rhythm, normal S1 and S2, no murmurs, rubs or gallops ABDOMEN: Soft, nontender, normoactive bowel sounds. No guarding, no rebound. No masses EXTREMITIES: Normal range of motion, no edema. No clubbing or cyanosis. No cords, erythema, or tenderness NEUROLOGICAL: Cranial nerves II through XII grossly intact. Normal speech, normal gait SKIN: Warm, Dry, normal turgor, no rashes lesions noted. - Medical Decision Making 11/03/19 19:55 Pt walking about the ER without difficulty. Neuro exam normal Pt is not and no UTI. She is feeling better and wants to go home. Pt was reassured. No need for head CT at this time. 11/03/19 19:56 Stable for discharge Heart Score/ECG Review - ECG Intrepretation Rhythm: Regular Rhythm - [place]: Normal - P and IN Prominent R with upright T in V1 (true posterior MN): No Delta Wave(s) Present: No WPW: No - QRS Poor R Wave Progression: No Q Wave Present: No - ST and T Early Repolarization: No Non Specific ST-T Wave changes: No - ECG Impressions Normal ECG: Yes Non-specific ST Elevation: No Ischemic Changes: No Torsades maxwell Pointes: No WPW: No Discharge - Discharge Information Problems reviewed: Yes Clinical Impression/Diagnosis: Vertigo Condition: Improved Disposition: HOME - Additional Discharge Information Prescriptions: Meclizine HCl 25 mg PO DAILY PRN 14 Days #14 tablet PRN Reason: Vertigo - Follow up/Referral Referrals: Shraddha Real MD [Primary Care Provider] - - Patient Discharge Instructions Patient Printed Discharge Instructions: Benign Paroxysmal Positional Vertigo, DI for Meniere Disease Additional Instructions: You were seen in the ED for complaints of worsening vertigo symptoms with associated ear ringing and possible nonspecific hearing loss. In the ED you were evaluated with physical examination. Your evaluation for Benign Paroxysmal Positional Vertigo; suspicious for possible Meniere's Disease. There does not appear to be an acute need for immediate hospitalization. You are advised to follow up with your Primary Care Physician within 1 week. You were given a prescription for Meclizine as needed once a day when experiencing symptoms Return to the ED immediately if you experience: -Develop a fever -Have vision problems, hearing loss, or difficulty speaking -Feel weakness or numbness in your arm or leg -Fall or have difficulty walking -Get a new headache - Post Discharge Activity
[2019-11-03 03:01] LABS: PH,URINE 5.5 (5.0-8.0); URINE APPEARANCE CLEAR; URINE BILIRUBIN NEGATIVE (NEGATIVE); URINE COLOR YELLOW; URINE GLUCOSE (UA) NEGATIVE (NEGATIVE); URINE KETONE NEGATIVE (NEGATIVE); URINE LEUK ESTERASE NEGATIVE (NEGATIVE); URINE NITRITE NEGATIVE (NEGATIVE); URINE PROTEIN NEGATIVE (NEGATIVE); URINE UROBILINOGEN 0.2 mg/dL (0.2-1.0)
--- NOTE | 2019-11-05 11:31 | EKG ---
Test Reason : Blood Pressure : / mmHG Vent. Rate : 079 BPM Atrial Rate : 079 BPM P-R Int : 166 ms QRS Dur : 084 ms QT Int : 380 ms P-R-T Axes : 041 026 012 degrees QTc Int : 435 ms NORMAL SINUS RHYTHM NONSPECIFIC ST AND T WAVE ABNORMALITY ABNORMAL ECG WHEN COMPARED WITH ECG OF 05-APR-2018 20:51, NO SIGNIFICANT CHANGE WAS FOUND Confirmed by MARY GARCIA MD ([id number]) on 11/05/2019 11:31:42 AM Referred By: Confirmed By:MARY GARCIA MD
== END 2019-11-03 02:36 | disposition home or self-care (01) ==
LOC: JER
DX: R42 Dizziness and giddiness (principal)
CPT/HCPCS: 81003; 84703; 93005; 93010; 99284-25

== ENCOUNTER 2021-09-25 14:36 | Emergency (ER) | payer OTHER ==
[2021-09-25 15:00] VITALS: BP 107/62; PULSE 106; RESP 17; TEMP 98.2; BMI 43.2
[2021-09-25 16:41] LABS: PH,URINE 5.5 (5.0-8.0); URINE APPEARANCE CLEAR; URINE BILIRUBIN 1+ (NEGATIVE); URINE COLOR DK YELLOW; URINE GLUCOSE (UA) NEGATIVE (NEGATIVE); URINE KETONE TRACE (NEGATIVE); URINE LEUK ESTERASE NEGATIVE (NEGATIVE); URINE NITRITE NEGATIVE (NEGATIVE); URINE PROTEIN TRACE (NEGATIVE)
[2021-09-25 17:31] LABS: SYPHILIS W/ RPR CONF NON-REACTIVE (NONREACTIVE)
[2021-09-25 17:59] LABS: HIV INTERPRETATION NEGATIVE (NEGATIVE)
== END 2021-09-25 15:42 | disposition home or self-care (01) ==
LOC: JERFT 14:36
DX: R07.0 Pain in throat (principal); Z20.3 Contact with and (suspected) exposure to rabies
CPT/HCPCS: 36415; 81003; 84703; 86704; 86780; 86803; 87340; 87389; 87491; 87517; 87591; 87651; 99283-25

== ENCOUNTER 2023-04-30 08:38 | Emergency (ER) | payer OTHER ==
[2023-04-30 09:00] VITALS: RESP 18; BMI 39.4
[2023-04-30 09:57] VITALS: BP 128/83; PULSE 99; TEMP 98.2
[2023-04-30] MEDS ORDERED: LIDOCAINE VISCOUS 2% ORAL/TOP 15 ML UNIT-DOSE CUP ONE (10:12)
[2023-04-30] MEDS: LIDOCAINE VISCOUS 2% ORAL/TOP 15 ML UNIT-DOSE CUP MM ONE (10:20)
== END 2023-04-30 13:18 | disposition left against medical advice (07) ==
LOC: JER 08:38
DX: O26.891 Other specified pregnancy related conditions, first trimester (principal); S02.5XXS Fracture of tooth (traumatic), sequela; K08.89 Other specified disorders of teeth and supporting structures; R51.9 Headache, unspecified; X58.XXXS Exposure to other specified factors, sequela; Z3A.08 8 weeks gestation of pregnancy
CPT/HCPCS: 99283-25

== ENCOUNTER 2023-08-18 22:05 | Emergency (ER) | payer OTHER ==
[2023-08-18 22:20] VITALS: BP 132/91; PULSE 77; RESP 18; TEMP 98.4; BMI 23.0
[2023-08-18 23:35] LABS: EPI CELLS 1 /uL (0-25.1); HYALINE CASTS 0 /uL (0-3.1); URINE APPEARANCE CLEAR; URINE BACTERIA 5 /uL (0-1359); URINE BILIRUBIN NEGATIVE (NEGATIVE); URINE COLOR YELLOW; URINE GLUCOSE (UA) NEGATIVE (NEGATIVE); URINE KETONE NEGATIVE (NEGATIVE); URINE LEUK ESTERASE TRACE (NEGATIVE); URINE NITRITE NEGATIVE (NEGATIVE); URINE PROTEIN NEGATIVE (NEGATIVE); URINE RBC 1 /uL (0-23.9); URINE UROBILINOGEN 0.2 mg/dL (0.2-1.0); URINE WBC 11 /uL (0-25.8)
[2023-08-18] MEDS ORDERED: METOCLOPRAMIDE HCL INJECTION 10 MG/2 ML VIAL ONE (23:45)
[2023-08-19] MEDS: METOCLOPRAMIDE HCL INJECTION 10 MG/2 ML VIAL IVPB ONE (00:01)
[2023-08-19] MEDS: SODIUM CHLORIDE 0.9% 500 ML INFUS.BAG IV ONE ×2 (00:01)
[2023-08-19 00:27] LABS: BASO % 0.4 % (0-2.0); EOS % 1.3 % (0-4.5); HEMATOCRIT 35.6 % (32.4-45.2); HEMOGLOBIN 12.2 GM/dL (10.7-15.3); LYMPH % 19.5 % (8-40); MCH 30.9 pg (25.7-33.7); MCHC 34.3 g/dl (32.0-36.0); MEAN PLT VOLUME 8.1 fl (7.5-11.1); MONO % 7.8 % (3.8-10.2); PLATELET COUNT 288 10^3/uL (134-434); RBC 3.96 M/mm3 (3.60-5.2); RDW 13.9 % (11.6-15.6); WHITE BLOOD COUNT 10.8 K/mm3 (4.0-10.0)
[2023-08-19 00:52] LABS: POTASSIUM 3.6 mmol/L (3.5-5.1)
[2023-08-19 00:55] LABS: ALBUMIN 3.3 g/dl (3.4-5.0); BLOOD UREA NITROGEN 17.4 mg/dL (7-18); CALCIUM 8.9 mg/dL (8.5-10.1)
[2023-08-19 00:58] LABS: CREATININE 0.9 mg/dL (0.55-1.3)
[2023-08-19 01:00] LABS: BILIRUBIN,TOTAL 0.3 mg/dL (0.2-1); TOT PROT 6.6 g/dl (6.4-8.2)
== END 2023-08-19 01:58 | disposition home or self-care (01) ==
LOC: JER 22:05
PROC: 3E033GC Introduction of Other Therapeutic Substance into Peripheral Vein, Percutaneous Approach (ICD-10-PCS; principal; 2023-08-18)
DX: R42 Dizziness and giddiness (principal); R51.9 Headache, unspecified
CPT/HCPCS: 36415; 80053; 81003; 85025; 87086; 99284-25

== ENCOUNTER 2023-08-31 04:59 | Emergency (ER) | payer OTHER ==
[2023-08-31 05:02] VITALS: BP 114/73; PULSE 84; RESP 18; TEMP 98.2; BMI 37.3
[2023-08-31] MEDS ORDERED: MAG HYDROX/AL HYDROX/SIMETH 30 ML UNIT-DOSE CUP ONE (05:37)
[2023-08-31] MEDS ORDERED: ACETAMINOPHEN INJECTION 100 ML IVPB ONE (05:37)
[2023-08-31] MEDS: LACTATED RINGERS SOLUTION 1000 ML INFUS.BAG IV ONE (05:54)
[2023-08-31] MEDS: ACETAMINOPHEN 1000 MG/100 ML BAG IVPB ONE (05:54)
[2023-08-31] MEDS: MAG HYDROX/AL HYDROX/SIMETH 30 ML UNIT-DOSE CUP PO ONE (05:55)
[2023-08-31] MEDS ORDERED: ONDANSETRON *ODT* 4 MG TABLET ONE (05:57)
[2023-08-31] MEDS: ONDANSETRON *ODT* 4 MG TABLET SL ONE (06:03)
[2023-08-31] MEDS: ONDANSETRON 4 MG/2 ML VIAL IVPUSH ONE (06:05)
[2023-08-31 06:08] LABS: BASO % 0.2 % (0-2.0); HEMATOCRIT 37.7 % (32.4-45.2); HEMOGLOBIN 12.7 GM/dL (10.7-15.3); LYMPH % 23.5 % (8-40); MCH 30.5 pg (25.7-33.7); MCHC 33.8 g/dl (32.0-36.0); MEAN CELL VOLUME 90.4 fl (80-96); MEAN PLT VOLUME 7.8 fl (7.5-11.1); MONO % 7.3 % (3.8-10.2); PLATELET COUNT 317 10^3/uL (134-434); RBC 4.17 M/mm3 (3.60-5.2); RDW 14.1 % (11.6-15.6)
[2023-08-31 06:28] LABS: POTASSIUM 3.8 mmol/L (3.5-5.1)
[2023-08-31 06:30] LABS: EPI CELLS 7 /uL (0-25.1); HYALINE CASTS 0 /uL (0-3.1); PH,URINE 5.5 (5.0-8.0); URINE APPEARANCE CLEAR; URINE BACTERIA 15 /uL (0-1359); URINE BILIRUBIN NEGATIVE (NEGATIVE); URINE COLOR YELLOW; URINE GLUCOSE (UA) NEGATIVE (NEGATIVE); URINE KETONE NEGATIVE (NEGATIVE); URINE LEUK ESTERASE 1+ (NEGATIVE); URINE NITRITE NEGATIVE (NEGATIVE); URINE PROTEIN NEGATIVE (NEGATIVE); URINE RBC 8 /uL (0-23.9); URINE UROBILINOGEN 0.2 mg/dL (0.2-1.0); URINE WBC 39 /uL (0-25.8)
[2023-08-31 06:30] LABS: ALBUMIN 3.7 g/dl (3.4-5.0); BLOOD UREA NITROGEN 13.5 mg/dL (7-18)
[2023-08-31 06:35] LABS: BILIRUBIN,TOTAL 0.4 mg/dL (0.2-1); TOT PROT 7.2 g/dl (6.4-8.2)
[2023-08-31 07:34] LABS: HCG,QUALITATIVE URINE Negative
== END 2023-08-31 08:09 | disposition home or self-care (01) ==
LOC: JER 04:59
PROC: 3E033NZ Introduction of Analgesics, Hypnotics, Sedatives into Peripheral Vein, Percutaneous Approach (ICD-10-PCS; principal; 2023-08-31)
DX: R10.13 Epigastric pain (principal); R11.2 Nausea with vomiting, unspecified
CPT/HCPCS: 36415; 80053; 81003; 83690; 84703; 85025; 87086; 93005; 93010; 99284-25; J0131; Q0162

== ENCOUNTER 2023-09-17 23:33 | Emergency (ER) | payer OTHER ==
[2023-09-17 23:38] VITALS: BP 137/78; PULSE 76; RESP 18; TEMP 98.2; BMI 36.2
[2023-09-18] MEDS: ACETAMINOPHEN 1000 MG/100 ML BAG IVPB ONE (00:40)
[2023-09-18] MEDS: SODIUM CHLORIDE 0.9% 500 ML INFUS.BAG IV ONE (00:49)
[2023-09-18] MEDS ORDERED: ACETAMINOPHEN 325 MG TABLET (FP) ONE (01:16)
[2023-09-18] MEDS: ACETAMINOPHEN 325 MG TABLET (FP) PO ONE (01:18)
== END 2023-09-18 01:30 | disposition home or self-care (01) ==
LOC: JER 23:33
DX: J02.9 Acute pharyngitis, unspecified (principal); T73.0XXA Starvation, initial encounter; Z20.822 Contact with and (suspected) exposure to COVID-19
CPT/HCPCS: 0241U-QW; 87651; 99283-25

== ENCOUNTER 2023-09-27 22:12 | Emergency (ER) | payer OTHER ==
[2023-09-27 22:23] VITALS: BP 114/72; PULSE 84; RESP 19; TEMP 98.2
[2023-09-27 22:26] VITALS: BMI 36.3
[2023-09-27] MEDS: MECLIZINE HCL 25 MG TABLET (FP) PO ONE (22:50)
[2023-09-27] MEDS ORDERED: MECLIZINE HCL 25 MG TABLET (FP) ONE (23:00)
== END 2023-09-27 23:04 | disposition home or self-care (01) ==
LOC: JER 22:12
DX: F41.9 Anxiety disorder, unspecified (principal); R42 Dizziness and giddiness; R07.89 Other chest pain; R20.2 Paresthesia of skin
CPT/HCPCS: 93005; 93010; 99283-25